=== PATIENT | male | born 1995 | race Caucasian/White ===

== ENCOUNTER 2022-12-13 21:18 | Emergency (ER) | payer OTHER ==
[~2022-12-13] VITALS: Ht 170.2 cm; Wt 79.5 kg
[2022-12-13 21:37] VITALS: BP 131/83
[2022-12-13] MEDS ORDERED: LIDOCAINE 2%/EPI 1:100,000 inj. Multi-dose 20 ML VIAL IJ ONE (21:55)
[2022-12-13] MEDS ORDERED: TETanus/Pertussis (Acell)/Diphther VAC/PF (Tdap-Adult) 0.5ml syringe IMVAC ONE (21:55)
[2022-12-13] MEDS ORDERED: cephalexin 500mg capsule PO ONE (21:55)
[2022-12-13] MEDS ORDERED: CEPH250T PO (22:25)
== END 2022-12-13 22:30 | disposition home or self-care (01) ==
LOC: ER 21:18
DX: L02.11 Cutaneous abscess of neck (principal)
CPT/HCPCS: 10060; 90471; 90715; 99283; A6449